=== PATIENT | female | born 1995 | race Caucasian/White ===

== ENCOUNTER → 2017-06-17 | Outpatient (CLI) | payer OTHER ==
[~2017-06-17] MED LIST: BACTRIM DS 8001 TA1 PO; BIRTH CONTROL1 EAC1 PO; CLARITIN10 MG PO; FLAGYL500 MG PO; MACROBID100 M1 PO; MOTRIN400 MG PO; OMNICEF300 MG PO; RONDEC DM 480480 ML PO; ZITHROMAX Z PA250 MG PO; ZOFRAN4 MG PO
[2017-06-17 10:38] LABS: BASO # 0.1 10*3/uL (0.0-0.1); BASO % 0.9 % (0.0-1.0); EOS # 0.2 10*3/uL (0.0-0.4); EOS % 2.9 % (1.0-4.0); HEMATOCRIT 40.4 % (37.0-47.0); HEMOGLOBIN 12.9 g/dl (12.0-16.0); LYMPH # 1.1 10*3/uL (1.3-4.4); LYMPH % 18.9 % (27.0-41.0); MEAN CORPUSCULAR HGB 28.7 pg (27.0-31.0); MEAN CORPUSCULAR HGB CONC 31.9 g/dl (33.0-37.0); MEAN PLATELET VOLUME 11.2 fl (9.6-12.3); MONO # 0.5 10*3/uL (0.1-1.0); MONO % 8.1 % (3.0-9.0); NEUT % 68.9 % (47.0-73.0); PLATELET COUNT AUTOMATED 200 10*3/uL (130-400); RED BLOOD COUNT 4.49 10*6/uL (4.10-5.10); RED CELL DISTRI WIDTH 12.3 % (0-14.5); WHITE BLOOD COUNT 5.8 10*3/uL (4.8-10.8)
[2017-06-17 11:08] LABS: ALBUMIN 4.1 gm/dl (3.1-4.5); BUN 9 mg/dl (7-24); CHLORIDE 106 mmol/L (98-107); CREATININE 0.77 mg/dL (0.55-1.02); IRON 32 ug/dL (50-170); POTASSIUM 4.1 mmol/L (3.5-5.1); SGOT/AST 13 IU/L (3-35); SGPT/ALT 16 U/L (12-78); SODIUM 139 mmol/L (136-145); TOTAL IRON BINDING CAPACITY 470 ug/dl (250-450)
[2017-06-17 11:13] LABS: ALKALINE PHOSPHATASE 63 U/L (45-117); CHOLESTEROL 126 mg/dL (<200); HDL CHOLESTEROL 52 mg/dl (40-60); LDL CHOLESTEROL 64 mg/dL (9-159); TOTAL PROTEIN 7.7 gm/dL (6.4-8.2); TRIGLYCERIDES 50 mg/dl (<150); VLDL CHOLESTEROL 10 mg/dL (6-40)
== END | disposition home or self-care (01) ==
LOC: LAB 09:42 → US 10:00
PROVIDERS: Nurse Practitioner Primary Care
DX: R10.11 Right upper quadrant pain (principal); D50.8 Other iron deficiency anemias; R79.89 Other specified abnormal findings of blood chemistry

== ENCOUNTER → 2017-09-02 | Outpatient (CLI) | payer OTHER ==
--- NOTE | ~2017-09-02 | HM ---
[place], [place] HOLTER MONITOR REPORT NAME: MAYLIN HUGHES UNIT #: [id number] ROOM: DOCTOR: SARAH THRASHER MD BIRTHDATE: [birth year] DOS: 09/04/2017 A 24-HOUR HOLTER MONITOR Study was done from 09/02/2017 to 09/03/2017, tracing was analyzed on September 04. INDICATIONS: Palpitations, dyspnea. PROCEDURE: The patient was monitored utilizing a Holter device for 24 hours. FINDINGS: 1. Basic rhythm is sinus with average heart rate of 70. Heart rate in sinus varied from 37 beats per minute up to 176 beats per minute. 2. The patient had rare premature ventricular contractions. Two couplets and a single short run of bigeminy was noted. 3. The patient had frequent premature atrial contractions with 9 short runs of SVT. The longest of these lasted 19 minutes at 10:53 a.m. and did not appear to be associated with any symptoms. The patient listed multiple symptoms including heart racing, whole body shaking, hard to breathe, lightheaded, chest burning, etc. During one episode of heart racing, she was in sinus rhythm with sinus arrhythmia at a rate of 90. During another episode of heart racing, she was in sinus tachycardia at a rate of 140. During an episode of "heart beating out of my chest," she was having ventricular bigeminy. During the episode of laughing with whole body shaking, she was in sinus tachycardia with a rate of 150. IMPRESSION: 1. Normal sinus rhythm with normal heart rate variation for the patient's age. 2. Rare premature ventricular contractions, some of which were symptomatic. 3. Occasional short runs of supraventricular tachycardia without apparent symptoms. 4. Symptoms noted during periods of what appears to be physiologic sinus tachycardia. SARAH THRASHER MD CM:HOLTER:HOLTER MONITOR REPORT [id number] SARAH THRASHER MD
== END | disposition home or self-care (01) ==
LOC: CARD 08-14 08:30
DX: I08.1 Rheumatic disorders of both mitral and tricuspid valves (principal)

== ENCOUNTER → 2017-09-20 | Outpatient (CLI) | payer OTHER | END | disposition home or self-care (01) | LOC: US 10:43 | DX: R22.2 Localized swelling, mass and lump, trunk (principal) ==